=== PATIENT | female | born 1980 | race Caucasian/White ===

== ENCOUNTER → 2017-10-22 | Outpatient (CLI) | payer OTHER ==
--- NOTE | 2017-10-22 10:10 | US ---
EXAMINATION TYPE: US pelvic complete DATE OF EXAM: 10/22/2017 COMPARISON: NONE CLINICAL HISTORY: R10.2 Pelvic pain. Pt states generalized pelvic pain TECHNIQUE: Transabdominal (TA) Date of LMP: 09/21/2017 EXAM MEASUREMENTS: Uterus: 9.1 x 4.4 x 5.4 cm Endometrial Stripe: 0.7 cm Right Ovary: 2.7 x 1.8 x 2.4 cm Left Ovary: 3.1 x 1.5 x 3.0 cm 1. Uterus: Anteverted Heterogeneous with c-sec scar visible 2. Endometrium: wnl 3. Right Ovary: wnl 4. Left Ovary: wnl 5. Bilateral Adnexa: wnl 6. Posterior cul-de-sac: wnl No abnormality visualized to account for pt's symptoms IMPRESSION: No significant finding is seen to account for patient's symptoms.
== END | disposition home or self-care (01) ==
LOC: RADUSWWP 09:42
PROVIDERS: ATTEND Family Medicine
DX: R10.2 Pelvic and perineal pain (principal)
CPT/HCPCS: 76856

== ENCOUNTER → 2020-05-05 | Outpatient (CLI) | payer OTHER ==
--- NOTE | 2020-05-06 08:38 | MM ---
Reason for exam: clinical finding. Baseline mammogram. History: Took hormonal contraceptives beginning at age 18. Physical Findings: Nurse did not find any significant physical abnormalities on exam. MG 3D Diag Mammo W/Cad APRIL Bilateral CC and MLO view(s) were taken. The breast tissue is extremely dense which could obscure a lesion on mammography. Benign appearing bilateral calcifications. These results were verbally communicated with the patient and result sheet given to the patient on 05/05/20. ASSESSMENT: Benign, BI-RAD 2 RECOMMENDATION: Routine screening mammogram of both breasts in 1 year.
== END | disposition home or self-care (01) ==
LOC: RADMAMWWP 14:01
PROVIDERS: ATTEND Obstetrics & Gynecology
DX: N64.4 Mastodynia (principal)
CPT/HCPCS: 77066; G0279; 77062

== ENCOUNTER → 2021-09-27 | Outpatient (CLI) | payer OTHER ==
--- NOTE | 2021-09-28 08:03 | US ---
EXAMINATION TYPE: US pelvic complete DATE OF EXAM: 09/27/2021 COMPARISON: 10/22/2017 CLINICAL HISTORY: 41-year-old female N92.4 METRORRHAGIA. Patient states doctor felt uterus was enlarg ed. TECHNIQUE: Transabdominal sonographic images of the pelvis were acquired. Date of LMP: 09/19/2021, FINDINGS: EXAM MEASUREMENTS: Uterus: 9.9 x 5.2 x 3.8 cm Endometrial Stripe: 0.6 cm Right Ovary: 2.8 x 1.6 x 1.4 cm Left Ovary: 2.6 x 2.3 x 2.1 cm 1. Uterus: Anteverted. The myometrium is slightly heterogeneous. Somewhat prominent in size. 2. Endometrium: wnl 3. Right Ovary: Normal follicular change. 4. Left Ovary: A 1.4 cm dominant follicle. 5. Bilateral Adnexa: wnl 6. Posterior cul-de-sac: no free fluid IMPRESSION: 1. Uterus is slightly prominent in size measuring 10 cm long. It measured 9 cm long on 10/22/2017. 2. A 1.4 cm dominant follicle of the left ovary.
== END | disposition home or self-care (01) ==
LOC: RADUSWWP 16:13
PROVIDERS: ATTEND Obstetrics & Gynecology
DX: N92.4 Excessive bleeding in the premenopausal period (principal)
CPT/HCPCS: 76856

== ENCOUNTER 2021-10-27 10:50 | Day surgery (SDC) | payer OTHER ==
--- NOTE | 2021-10-25 16:01 | P.HPOB ---
History of Present Illness H&P Date: 10/25/21 Chief Complaint: Menorrhagia Arlene is a 41-year-old female with heavy vaginal bleeding. She relates that this a relatively new onset of very heavy bleeding with passage of up to softball size clots symptoms have started over the last 6 months and are causing significant distress and concerns just wear super tampon and pad at the same time and change at least every hour or she bleeds through. She is scheduled for a D&C with hysteroscopy and NovaSure. Risks/benefits/alternatives to this procedure were reviewed the patient in detail and all questions were answered for her prior to proceeding to the operative she is aware of risks of bleeding and infection possible damage to bladder or bowel thermal injuries as well as potential need for further surgery. She is also aware there is a small chance it could be concurrent cancer which would require different treatment but she would prefer to have 1 surgery rather than multiple surgeries. All this was explained and covered with the patient. Medications and Allergies Home Medications Medication Instructions Recorded Confirmed Type Norgestimate-Ethinyl Estradiol 1 tab PO DAILY 12/08/15 12/13/15 History [Sprintec 28 Day Tablet] Acetaminophen-Codeine 300-30mg 1 - 2 tab PO Q4H PRN #40 tablet 12/13/15 Rx [Tylenol #3] Ibuprofen [Motrin] 600 mg PO Q6HR PRN #40 tab 12/13/15 Rx Allergies Allergy/AdvReac Type Severity Reaction Status Date / Time No Known Allergies Allergy Verified 12/13/15 06:45 Exam Osteopathic Statement: *. No significant issues noted on an osteopathic structural exam other than those noted in the History and Physical/Consult. - OBG Physical Exam Breast: both: normal (no masses) Abdomen: bowel sounds normal, no diffuse tenderness, no bruit present, no guarding noted, no hepatomegaly, no splenomegaly, no mass Vulva: both: normal Vagina: normal moisture, no discharge Cervix: no lesion, no discharge Uterus: normal size, normal contour Adnexa: both: normal Anus/Rectum: normal perianal skin, no rectal mass, no hemorrhoids, heme negative
[2021-10-26 09:59] VITALS: BMI 26.9
[~2021-10-27 10:50] MED LIST: DEXAMETHASONE SOD PHOSPHATE 4 MG/ML 1 ML VIAL IV ONE; HYDROmorphone 1 MG/ML 1 ML SYRINGE IVP PRN; LACTATED RINGERS 1,000 ML IV SCH; MIDAZOLAM 2 MG/2 ML VIAL IV PRN; ONDANSETRON 4 MG/2 ML VIAL IVP ONE; Pre Op ABX Message 1 EACH MISC MISCELLANE ONE; SCOPOLAMINE 1.5MG/72HR PATCH TRANSDERM ONE
[2021-10-27] MEDS ORDERED: LIDOCAINE 1% INJ 10MG/ML (20 ML MDV) ONE (11:57)
[2021-10-27] MEDS ORDERED: KETOROLAC 15 MG/ML 1 ML VIAL ONE (11:57)
[2021-10-27] MEDS ORDERED: PROPOFOL 10 MG/ML 20 ML VIAL IV ONE (11:57)
[2021-10-27] MEDS ORDERED: MIDAZOLAM 2 MG/2 ML VIAL ONE (11:57)
[2021-10-27] MEDS ORDERED: fentaNYL (PF) 50 MCG/ML 2 ML AMP ONE (11:57)
--- NOTE | 2021-10-27 12:33 | P.OP ---
Date of Procedure: 10/27/21 Preoperative Diagnosis: Menorrhagia Postoperative Diagnosis: Same Procedure(s) Performed: D&C with hysteroscopy and NovaSure Anesthesia: SOBIA Surgeon: Bradley Sims Estimated Blood Loss (ml): 3 IV fluids (ml): 400 Pathology: other (Uterine curettings) Condition: stable Disposition: same day Operative Findings: Pathology pending.? Polyp Description of Procedure: Arelne was taken to the operating suite where general anesthetic was found be adequate. She was prepped and draped in normal sterile fashion and placed in the dorsal lithotomy position. Initially a weighted speculum was inserted in the vagina and the anterior lip of cervix identified and grasped with an Allis clamp. Cervix was then added to 8 cm and cervix was dilated. Once this was completed camera was inserted with question polyp noted. Sharp curettings of the endometrium were then obtained and placed on Telfa and sent to pathology for evaluation. Once this was completed NovaSure system was brought in with a length of 4.5 and a width of 4.1 it was tested. Once it passes patency test it was enabled and activated. The burn lasted 2 minutes. At conclusion of the burn system was removed and camera was reinserted with excellent burn noted. All incidents were then removed. Sponge, lap, needle counts were all correct 2. Patient was then taken to the recovery room in stable and satisfactory condition. 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 If any high temperatures, heavy bleeding, or severe pain call my office Discharge Disposition: HOME SELF-CARE
[2021-10-27 13:05] VITALS: TEMP 97
[2021-10-27] MEDS ORDERED: HYDROmorphone 1 MG/ML 1 ML SYRINGE ONE (13:19)
[2021-10-27] MEDS ORDERED: ACETAMINOPHEN TAB 500 MG TAB ONE (13:20)
[2021-10-27] MEDS ORDERED: ACETAMINOPHEN TAB 500 MG TAB PO ONE (13:22)
[2021-10-27 13:46] VITALS: BP 103/59; PULSE 59; RESP 17
== END 2021-10-27 14:10 | disposition home or self-care (01) ==
LOC: OR 10:50
PROVIDERS: ATTEND Obstetrics & Gynecology
DX: N92.0 Excessive and frequent menstruation with regular cycle (principal); Z79.3 Long term (current) use of hormonal contraceptives; F17.200 Nicotine dependence, unspecified, uncomplicated; K21.9 Gastro-esophageal reflux disease without esophagitis
CPT/HCPCS: 81025; 88305; 58563; J2250; J1100; J2405; J2001; J3010; J1170; J1885; J2704

== ENCOUNTER → 2022-09-03 | Outpatient (CLI) | payer OTHER ==
--- NOTE | 2022-09-03 08:33 | US ---
EXAMINATION TYPE: US abdomen complete DATE OF EXAM: 09/03/2022 COMPARISON: NONE CLINICAL HISTORY: R14.0 BLOATING, R19.8 CONSTIPATION, R10.13 PAIN. TECHNIQUE: Multiple sonographic images of the abdomen are obtained. FINDINGS: EXAM MEASUREMENTS: Liver Length: 11.7 cm Gallbladder Wall: 0.1 cm CBD: 0.1 cm Spleen: 11.0 cm Right Kidney: 11.2 x 3.4 x 4.4 cm Left Kidney: 10.8 x 4.4 x 4.4 cm ENTRY LEVEL STAFF ACCOUNTANT NOTES: Pancreas: wnl Liver: Septated cyst left lobe measuring 3.0 x 2.1 x 2.8 cm, subtle hyperechoic well circumscribed m ass measuring 1.6 x 1.4 x 1.5cm Gallbladder: wnl Evidence for sonographic Tolentino's sign: no CBD: wnl Spleen: wnl Right Kidney: No hydronephrosis or masses seen Left Kidney: No hydronephrosis or masses seen Upper IVC: wnl Abd Aorta: wnl The intrahepatic portion of the IVC and proximal abdominal aorta are within normal limits. There is no evidence of cholelithiasis. Common bile duct is unremarkable. The visualized portions of the puente cre[place] are homogenous. The spleen is unremarkable. Kidneys are symmetric and free of hydronephrosis. No renal lesions are seen. IMPRESSION: 1. No evidence for acute abdominal process. 2. Minimally complex hepatic cyst with thin septation. 3. Indeterminate hyperechoic lesion in the liver measuring up to 1.6 cm. If clinically warranted to be further characterized with MRI/CT liver mass protocol.
--- NOTE | 2022-09-04 08:44 | MM ---
Reason for Exam: Screening (asymptomatic). Last mammogram was performed 2 year(s) and 4 month(s) ago. Patient History: Menarche at age 15. First Full-Term at age 27. Premenopausal. Hormonal Contraceptives, from age 18 until age 35. Risk Values: [facility] 5 year model risk: 0.6%. NCI Lifetime model risk: 11.1%. Prior Study Comparison: 05/05/2020 Bilateral Diagnostic Mammogram, [facility]. Tissue Density: The breast tissue is heterogeneously dense. This may lower the sensitivity of mammography. Findings: Analyzed By CAD. Asymmetric density left breast 6 cm from the nipple central outer quadrant. Additional views are recommended. Few scattered benign calcifications are unchanged. Overall Assessment: Incomplete: need additional imaging evaluation, BI-RAD 0 Management: Diagnostic Mammogram of the left breast. A clinical breast exam by your physician is recommended on an annual basis and results should be correlated with mammographic findings. Electronically signed and approved by: Long Steele M.D. Radiologis
== END | disposition home or self-care (01) ==
LOC: RADUSWWP 07:18
PROVIDERS: ATTEND Family Medicine
DX: Z12.31 Encounter for screening mammogram for malignant neoplasm of breast (principal); K76.89 Other specified diseases of liver; R14.0 Abdominal distension (gaseous); R19.8 Other specified symptoms and signs involving the digestive system and abdomen; R10.13 Epigastric pain
CPT/HCPCS: 76700; 77063; 77067

== ENCOUNTER → 2022-09-06 | Outpatient (CLI) | payer OTHER ==
--- NOTE | 2022-09-06 14:31 | MM ---
Reason for Exam: Additional evaluation requested from abnormal screening. Last screening mammogram was performed less than 1 month ago. Patient History: Menarche at age 15. First Full-Term at age 27. Premenopausal. Hormonal Contraceptives, from age 18 until age 35. Risk Values: [facility] 5 year model risk: 0.6%. NCI Lifetime model risk: 11.1%. Prior Study Comparison: 05/05/2020 Bilateral Diagnostic Mammogram, [facility]. 09/03/2022 Bilateral MG 3D screening mammo w/cad, [facility]. Tissue Density: Left: The breast tissue is heterogeneously dense. This may lower the sensitivity of mammography. Findings: Analyzed By CAD. Under compression in the mediolateral oblique and mediolateral views no persistent suspicious distortion is evident. Vague distortion may be present on the compression cranial caudal view. This appears to partially disperse. Short-term follow-up is recommended. Overall Assessment: Probably benign, BI-RAD 3 Management: Diagnostic Mammogram of the left breast in 6 months. A clinical breast exam by your physician is recommended on an annual basis and results should be correlated with mammographic findings. This exam should not preclude additional follow-up of suspicious palpable abnormalities. Results were given to the patient verbally at the time of exam. Electronically signed and approved by: Dieudonne Thomason D.O. Radiologis
== END | disposition home or self-care (01) ==
LOC: RADMAMWWP 13:39
PROVIDERS: ATTEND Family Medicine
DX: R92.8 Other abnormal and inconclusive findings on diagnostic imaging of breast (principal)
CPT/HCPCS: 77065; G0279; 77061

== ENCOUNTER 2023-01-01 05:59 | Day surgery (SDC) | payer OTHER ==
[2022-12-31 08:24] VITALS: BMI 26.2
[2023-01-01] MEDS ORDERED: LACTATED RINGERS 1,000 ML IV SCH (06:28)
[2023-01-01] MEDS ORDERED: LIDOCAINE 1% (10MG/ML) FOR IV START INTRADERMA PRN (06:28)
[2023-01-01 06:58] VITALS: TEMP 97.1
[2023-01-01] MEDS ORDERED: LIDOCAINE 2% INJ 20 MG/ML (2 ML VIAL) ONE (07:22)
[2023-01-01] MEDS ORDERED: PROPOFOL 10 MG/ML 20 ML VIAL IV ONE (07:22)
--- NOTE | 2023-01-01 07:44 | P.PCN ---
Date of Procedure: 01/01/23 Procedure(s) Performed: Brief history: Patient is a pleasant 42-year-old white female scheduled for an elective upper endoscopy as well as colonoscopy as a part of evaluation of epigastric pain for the last several years duration. Her symptoms have been progressively getting worse the last admission associated with abdominal bloating and alternating diarrhea and constipation. Procedure performed: Esophagogastroduodenoscopy biopsy Colonoscopy Preoperative diagnosis: Epigastric pain Change in bowel habits Anesthesia: MAC Procedure: After informed consent was obtained from the patient was brought into the endoscopy unit and IV sedation was administered by anesthesia under continuous monitoring. Initially upper endoscopy was done. The Olympus GF 160 video endoscope was inserted inserted into the mouth and esophagus intubated without any difficulty and was gradually advanced into the stomach and duodenum and carefully examined. The bulb and second part of the duodenum appeared normal. Biopsies were done from the duodenum to rule out celiac disease. The scope was then withdrawn into the stomach adequately insufflated with air and upon careful examination the antrum had scattered areas of erythema and biopsies were done from this area. Mucosady, cardia and fundus appeared normal. The scope was then withdrawn into the esophagus. The GE junction was located at 40 cm to the incisors. It appeared regular with no erythema erosions or ulcerations. Biopsies were done from the distal esophagus. Rest of the esophagus appeared normal. Patient tolerated the procedure well. At this time the patient continued to remain sedation. Initial digital rectal examination was normal. Olympus CF 160 video colonoscope was then inserted into the rectum and gradually advanced to the cecum without any difficulty. Careful examination was performed as the scope was gradually being withdrawn. The prep was excellent. Terminal ileum was intubated and 20 cm visualized and appeared normal. The cecum, ascending colon, transverse colon, descending colon, sigmoid colon and rectum appeared normal. Retroflexion was performed in the rectum and no lesions were noted. Patient tolerated the procedure well. Impression: 1. Upper endoscopy revealed mild antral gastritis 2. Colonoscopy was within normal limits with no evidence of colitis or colorectal neoplasia Recommendations: Findings of this examination were discussed with the patient as well as her family. She was advised to follow with the biopsy results. Continue with current medications and follow antireflux measures. She'll be seen in office in 3-4 weeks.
[2023-01-01 08:00] VITALS: RESP 16
[2023-01-01 08:13] VITALS: BP 116/76; PULSE 74
== END 2023-01-01 08:30 | disposition home or self-care (01) ==
LOC: ORWHC2ENDO 05:59
PROVIDERS: ATTEND Internal Medicine Gastroenterology
DX: K29.90 Gastroduodenitis, unspecified, without bleeding (principal); K31.89 Other diseases of stomach and duodenum; K21.00 Gastro-esophageal reflux disease with esophagitis, without bleeding; K59.00 Constipation, unspecified; Z87.891 Personal history of nicotine dependence; Z79.899 Other long term (current) drug therapy
CPT/HCPCS: 81025; 88305; 45378; 43239; J2704; J2001

== ENCOUNTER → 2023-01-24 | Outpatient (CLI) | payer OTHER ==
--- NOTE | 2023-01-24 08:59 | US ---
EXAMINATION TYPE: US pelvic complete DATE OF EXAM: 01/24/2023 COMPARISON: NONE CLINICAL INDICATION: Female, 42 years old with history of R10.30 LOW ABD PAIN; Hx ablation October 25. TECHNIQUE: Transabdominal (TA). Transabdominal sonographic images of the pelvis were acquired. Pat ient declines transvaginal ultrasound. Date of LMP: Unknown, EXAM MEASUREMENTS: Uterus: 9.9 x 5.2 x 3.8 cm Endometrial Stripe: 0.3 cm Right Ovary: 2.8 x 1.6 x 1.4 cm Left Ovary: 2.6 x 2.3 x 2.1 cm 1. Uterus: Anteverted Heterogenous 2. Endometrium: limited visualization due to ablation 3. Right Ovary: dominant follicle seen 4. Left Ovary: follicles seen 5. Bilateral Adnexa: wnl 6. Posterior cul-de-sac: trace amount of free fluid seen IMPRESSION: Poor visualization of the endometrium which could be secondary to posttreatment changes. No acute processes definitively visualized.
== END | disposition home or self-care (01) ==
LOC: RADUSWWP 07:39
PROVIDERS: ATTEND Family Medicine
DX: R10.30 Lower abdominal pain, unspecified (principal)
CPT/HCPCS: 76856

== ENCOUNTER → 2023-02-07 | Outpatient (CLI) | payer OTHER ==
[2023-02-07 16:59] LABS: Gliadin AB IgA, Deaminated NEGATIVE (NEGATIVE); Gliadin AB IgA, Unit 0.2 U/mL; Gliadin AB IgG, Deaminated NEGATIVE (NEGATIVE); Gliadin AB IgG, Unit <0.4 U/mL
== END | disposition home or self-care (01) ==
LOC: LABWHC1 09:41
PROVIDERS: ATTEND Nurse Practitioner Family
DX: R10.13 Epigastric pain (principal)
CPT/HCPCS: 36415; 83516

== ENCOUNTER 2023-02-26 12:44 | Emergency (ER) | payer BC, OTHER ==
[2023-02-26] MEDS ORDERED: ACETAMINOPHEN TAB 500 MG TAB PO STA (13:47)
[2023-02-26] MEDS ORDERED: IBUPROFEN 600 MG TAB PO STA (13:47)
--- NOTE | 2023-02-26 13:49 | ED ---
General Adult HPI - General Chief complaint: Fever Stated complaint: abd pain,body aches Time Seen by Provider: 02/26/23 13:25 Source: patient, RN notes reviewed, old records reviewed Mode of arrival: ambulatory Limitations: no limitations - History of Present Illness Initial comments: This is a 42-year-old female presents emergency department stating that she has not been feeling well for the last 2 weeks. She was initially diagnosed with a bilateral ear infection with sinusitis given antibiotics. Patient states since then she continues to have some body aches and headache as of 3 days ago she started spiking a fever she's had it for 3 days now. [facility] or primary medical care doctor who wanted to come in to the emergency department to be further evaluated. Patient denies any nausea vomiting. Patient denies chest pain patient shortness of breath per patient denies cough. Patient states his whole thing started with a sore throat 2 weeks ago and now she is extremely tired and fatigued and she's sleeping 14 or 15 hours a day. Patient denies any dysuria hematuria urinary frequency. Patient states her lower back is achy as well. Patient states she does have a headache but it is mild in nature. - Related Data Home Medications Medication Instructions Recorded Confirmed Cholecalciferol (Vitamin D3) 125 mcg PO Q7D 12/31/22 01/01/23 [Vitamin D3] Allergies Allergy/AdvReac Type Severity Reaction Status Date / Time No Known Allergies Allergy Verified 01/01/23 06:43 Review of Systems ROS Statement: Those systems with pertinent positive or pertinent negative responses have been documented in the HPI. ROS Other: All systems not noted in ROS Statement are negative. Past Medical History Past Medical History: No Reported History Additional Past Medical History / Comment(s): Stomach pain with constipation and diarrhea. History of Any Multi-Drug Resistant Organisms: None Reported Past Surgical History: Appendectomy, Section, Tubal Ligation Additional Past Surgical History / Comment(s): LEEP procedure, C/S x2, uterine ablation. Past Anesthesia/Blood Transfusion Reactions: No Reported Reaction Past Psychological History: No Psychological Hx Reported Smoking Status: Former smoker Past Alcohol Use History: None Reported Past Drug Use History: None Reported - Past Family History Mother Family Medical History: No Reported History General Exam - General Exam Comments Initial Comments: GENERAL: Patient is well-developed and well-nourished. Patient is nontoxic and well- hydrated and is in mild distress. Patient is 101.3 fever orally ENT: Neck is soft and supple. No significant lymphadenopathy is noted. Oropharynx is clear. Moist mucous membranes. Neck has full range of motion without eliciting any pain. EYES: The sclera were anicteric and conjunctiva were pink and moist. Extraocular movements were intact and pupils were equal round and reactive to light. Eyelids were unremarkable. PULMONARY: Unlabored respirations. Good breath sounds bilaterally. No audible rales rhonchi or wheezing was noted. CARDIOVASCULAR: There is a regular rate and rhythm without any murmurs gallops or rubs. ABDOMEN: Soft and nontender with normal bowel sounds. SKIN: Skin is clear with no lesions or rashes and otherwise unremarkable. NEUROLOGIC: Patient is alert and oriented x3. Cranial nerves II through XII are grossly intact. Motor and sensory are also intact. Normal speech, volume and content. Symmetrical smile. MUSCULOSKELETAL: Normal extremities with adequate strength and full range of motion. No lower extremity swelling or edema. No calf tenderness. LYMPHATICS: No significant lymphadenopathy is noted PSYCHIATRIC: Normal psychiatric evaluation. Limitations: no limitations Course Vital Signs 02/26/23 13:12 Temperature 100.1 F H Pulse Rate 118 H Respiratory 20 Rate Blood Pressure 127/4 O2 Sat by Pulse 100 Oximetry Medical Decision Making - Medical Decision Making Was pt. sent in by a medical professional or institution (AJSWINDER Diamond, PROPERTY ASSESSMENT MONITOR, urgent care, hospital, or fdc...) When possible be specific @ -Patient's primary medical care doctor sent her into the emergency department Did you speak to anyone other than the patient for history (EMS, parent, family, police, friend...)? What history was obtained from this source @ -No Did you review nursing and triage notes (agree or disagree)? Why? @ -I reviewed and agree with nursing and triage notes Were old charts reviewed (outside hosp., previous admission, EMS record, old EKG, old radiological studies, urgent care reports/EKG's, fdc records)? Report findings @ -No old charts were reviewed Differential Diagnosis (chest pain, altered mental status, abdominal pain women, abdominal pain men, vaginal bleeding, weakness, fever, dyspnea, syncope, headache, dizziness, GI bleed, back pain, seizure, CVA, palpatations, mental health, musculoskeletal)? @ -Differential Fever: Pneumonia, viral URI, endocarditis, myocarditis, pericarditis, otitis, sinusitis, peritonsillar Abscess, retropharyngeal Abscess, epiglottitis, peritonitis, appendicitis, Joann cystitis, diverticulitis, hepatitis, colitis, UTI, PID, TOA, pyelonephritis, prostatitis, epididymitis, meningitis, encephalitis, pulmonary embolism, CVA, thyroid storm, pancreatitis, adrenal crisis, cavernous sinus thrombosis, this is not meant to be an all-inclusive list. EKG interpreted by me (3pts min.). @ -As above X-rays interpreted by me (1pt min.). @ -Chest x-ray showed no acute abnormality CT interpreted by me (1pt min.). @ -None done U/S interpreted by me (1pt. min.). @ -None done What testing was considered but not performed or refused? (CT, X-rays, U/S, labs)? Why? @ -None What meds were considered but not given or refused? Why? @ -None Did you discuss the management of the patient with other professionals (professionals i.e. , PA, PROPERTY ASSESSMENT MONITOR, lab, RT, psych nurse, social media assistant, flooring machine operator, teacher, prison officer, case loader operator)? Give summary @ -No Was smoking cessation discussed for >3mins.? @ -No Was critical care preformed (if so, how long)? @ -No Were there social determinants of health that impacted care today? How? (Homelessness, low income, unemployed, alcoholism, drug addiction, trans portation, low edu. Level, literacy, decrease access to med. care, prison, rehab)? @ -No Was there de-escalation of care discussed even if they declined (Discuss DNR or withdrawal of care, Hospice)? DNR status @ -No What co-morbidities impacted this encounter? (DM, HTN, Smoking, COPD, CAD, Cancer, CVA, ARF, Chemo, Hep., AIDS, mental health diagnosis, sleep apnea, morbid obesity)? @ -None Was patient admitted / discharged? Hospital course, mention meds given and route, prescriptions, significant lab abnormalities, going to OR and other pertinent info. @ -To give Motrin and Tylenol to bring on the fever. Patient was also given a liter of fluid because she stated she felt dehydrated. Patient had lab work done COVID test influenza test strep test and heterophile test all of which were negative. Chest x-ray was also negative. Urine was negative for infection. Patient has ending throat culture and blood culture Undiagnosed new problem with uncertain prognosis? @ -No Drug Therapy requiring intensive monitoring for toxicity (Heparin, Nitro, Insulin, Cardizem)? @ -No Were any procedures done? @ -No Diagnosis/symptom? @ -Viral syndrome Acute, or Chronic, or Acute on Chronic? @ -Acute Uncomplicated (without systemic symptoms) or Complicated (systemic symptoms)? @ -Uncomplicated Side effects of treatment? @ -No Exacerbation, Progression, or Severe Exacerbation? @ -No Poses a threat to life or bodily function? How? (Chest pain, [place], [place], pneumonia, PE, COPD, DKA, ARF, appy, cholecystitis, CVA, Diverticulitis, Homicidal, Suicidal, threat to staff... and all critical care pts) @ -No - Lab Data Result diagrams: 02/26/23 15:00 02/26/23 15:00 Lab Results 02/26/23 02/26/23 02/26/23 Range/Units 15:00 15:00 15:00 WBC 7.7 (3.8-10.6) k/uL RBC 4.47 (3.80-5.40) m/uL Hgb 13.7 (11.4-16.0) gm/dL Hct 40.2 (34.0-46.0) % MCV 89.9 (80.0-100.0) fL MCH 30.7 (25.0-35.0) pg MCHC 34.1 (31.0-37.0) g/dL RDW 12.2 (11.5-15.5) % Plt Count 297 (150-450) k/uL MPV 7.4 Neutrophils % 81 % Lymphocytes % 13 % Monocytes % 4 % Eosinophils % 1 % Basophils % 1 % Neutrophils # 6.3 (1.3-7.7) k/uL Lymphocytes # 1.0 (1.0-4.8) k/uL Monocytes # 0.3 (0-1.0) k/uL Eosinophils # 0.1 (0-0.7) k/uL Basophils # 0.0 (0-0.2) k/uL Sodium 134 L (137-145) mmol/L Potassium 4.1 (3.5-5.1) mmol/L Chloride 99 (98-107) mmol/L Carbon Dioxide 24 (22-30) mmol/L Anion Gap 11 mmol/L BUN 11 (7-17) mg/dL Creatinine 0.53 (0.52-1.04) mg/dL Est GFR (CKD-EPI)AfAm >90 (>60 ml/min/1.73 sqM) Est GFR (CKD-EPI)NonAf >90 (>60 ml/min/1.73 sqM) Glucose 88 (74-99) mg/dL Calcium 9.1 (8.4-10.2) mg/dL Total Bilirubin 0.8 (0.2-1.3) mg/dL AST 17 (14-36) U/L ALT 12 (4-34) U/L Alkaline Phosphatase 56 (38-126) U/L Total Protein 7.4 (6.3-8.2) g/dL Albumin 4.6 (3.5-5.0) g/dL Urine Color Urine Appearance (Clear) Urine pH (5.0-8.0) Ur Specific [place] (1.001-1.035) Urine Protein (Negative) Urine Glucose (UA) (Negative) Urine Ketones (Negative) Urine Blood (Negative) Urine Nitrite (Negative) Urine Bilirubin (Negative) Urine Urobilinogen (<2.0) mg/dL Ur Leukocyte Esterase (Negative) Urine RBC (0-5) /hpf Urine WBC (0-5) /hpf Ur Squamous Epith Cells (0-4) /hpf Urine Mucus (None) /hpf Heterophile Antibody Negative (Negative) Influenza Type A (PCR) (Not Detectd) Influenza Type B (PCR) (Not Detectd) RSV (PCR) (Not Detectd) SARS-CoV-2 (PCR) (Not Detectd) Group A Strep (PCR) (Not Detectd) 02/26/23 02/26/23 02/26/23 Range/Units 15:10 15:10 16:08 WBC (3.8-10.6) k/uL RBC (3.80-5.40) m/uL Hgb (11.4-16.0) gm/dL Hct (34.0-46.0) % MCV (80.0-100.0) fL MCH (25.0-35.0) pg MCHC (31.0-37.0) g/dL RDW (11.5-15.5) % Plt Count (150-450) k/uL MPV Neutrophils % % Lymphocytes % % Monocytes % % Eosinophils % % Basophils % % Neutrophils # (1.3-7.7) k/uL Lymphocytes # (1.0-4.8) k/uL Monocytes # (0-1.0) k/uL Eosinophils # (0-0.7) k/uL Basophils # (0-0.2) k/uL Sodium (137-145) mmol/L Potassium (3.5-5.1) mmol/L Chloride (98-107) mmol/L Carbon Dioxide (22-30) mmol/L Anion Gap mmol/L BUN (7-17) mg/dL Creatinine (0.52-1.04) mg/dL Est GFR (CKD-EPI)AfAm (>60 ml/min/1.73 sqM) Est GFR (CKD-EPI)NonAf (>60 ml/min/1.73 sqM) Glucose (74-99) mg/dL Calcium (8.4-10.2) mg/dL Total Bilirubin (0.2-1.3) mg/dL AST (14-36) U/L ALT (4-34) U/L Alkaline Phosphatase (38-126) U/L Total Protein (6.3-8.2) g/dL Albumin (3.5-5.0) g/dL Urine Color Yellow Urine Appearance Cloudy H (Clear) Urine pH 6.5 (5.0-8.0) Ur Specific [place] 1.025 (1.001-1.035) Urine Protein Trace H (Negative) Urine Glucose (UA) Negative (Negative) Urine Ketones 2+ H (Negative) Urine Blood Negative (Negative) Urine Nitrite Negative (Negative) Urine Bilirubin Negative (Negative) Urine Urobilinogen 3.0 (<2.0) mg/dL Ur Leukocyte Esterase Small H (Negative) Urine RBC 2 (0-5) /hpf Urine WBC 7 H (0-5) /hpf Ur Squamous Epith Cells 18 H (0-4) /hpf Urine Mucus Occasional H (None) /hpf Heterophile Antibody (Negative) Influenza Type A (PCR) Not Detected (Not Detectd) Influenza Type B (PCR) Not Detected (Not Detectd) RSV (PCR) Not Detected (Not Detectd) SARS-CoV-2 (PCR) Not Detected (Not Detectd) Group A Strep (PCR) NOT DETECTED (Not Detectd) Disposition Clinical Impression: Viral syndrome Disposition: HOME SELF-CARE Condition: Good Instructions (If sedation given, give patient instructions): Fever in Adults (ED), Viral Syndrome (ED) Is patient prescribed a controlled substance at d/c from ED?: No Referrals: Delicia Estevez MD [Primary Care Provider] - 1-2 days Time of Disposition: 17:13
--- NOTE | 2023-02-26 14:40 | XR ---
EXAMINATION TYPE: XR chest 2V DATE OF EXAM: 02/26/2023 COMPARISON: None HISTORY: 42 year-old female shortness of breath, difficulty breathing TECHNIQUE: PA and lateral views FINDINGS: The cardiomediastinal silhouette, aorta, and pulmonary vasculature are within normal limits. Lungs an d pleural spaces are clear. IMPRESSION: No acute cardiopulmonary process.
[2023-02-26 15:17] LABS: Basophils % (A) 1 %; Eosinophils # (A) 0.1 k/uL (0-0.7); Eosinophils % (A) 1 %; HCT 40.2 % (34.0-46.0); HGB 13.7 gm/dL (11.4-16.0); Lymphocytes % (A) 13 %; MCH 30.7 pg (25.0-35.0); MCHC 34.1 g/dL (31.0-37.0); MCV 89.9 fL (80.0-100.0); Mean Platelet Volume 7.4; Monocytes # (A) 0.3 k/uL (0-1.0); Monocytes % (A) 4 %; Neutrophils # (A) 6.3 k/uL (1.3-7.7); Neutrophils % (A) 81 %; Platelet Count 297 k/uL (150-450); RBC 4.47 m/uL (3.80-5.40); RDW 12.2 % (11.5-15.5); WBC 7.7 k/uL (3.8-10.6)
[2023-02-26 15:28] LABS: ALT 12 U/L (4-34); AST 17 U/L (14-36); African American GFR (CKD) >90 (>60 ml/min/1.73 sqM); Albumin 4.6 g/dL (3.5-5.0); Alkaline Phosphatase 56 U/L (38-126); Anion Gap 11 mmol/L; Blood Urea Nitrogen 11 mg/dL (7-17); Calcium 9.1 mg/dL (8.4-10.2); Carbon Dioxide 24 mmol/L (22-30); Chloride 99 mmol/L (98-107); Glucose 88 mg/dL (74-99); Non-African American GFR(CKD) >90 (>60 ml/min/1.73 sqM); Potassium 4.1 mmol/L (3.5-5.1); Sodium 134 mmol/L (137-145); Total Bilirubin 0.8 mg/dL (0.2-1.3); Total Protein 7.4 g/dL (6.3-8.2)
[2023-02-26 15:33] LABS: Appearance,Urine Cloudy (Clear); Bilirubin,Urine Negative (Negative); Blood,Urine Negative (Negative); Color,Urine Yellow; Glucose,Urine (UA) Negative (Negative); Ketones,Urine 2+ (Negative); Leukocyte Esterase,Urine Small (Negative); Mucus,Urine Occasional /hpf; Nitrite,Urine Negative (Negative); PH, Urine 6.5 (5.0-8.0); Protein,Urine Trace (Negative); RBC,Urine 2 /hpf (0-5); Specific Gravity,Urine 1.025 (1.001-1.035); Squamous Epithelial Cell,Urine 18 /hpf (0-4); WBC,Urine 7 /hpf (0-5)
[2023-02-26 18:19] VITALS: BP 116/76; PULSE 71; RESP 15; TEMP 98.3
== END 2023-02-26 18:18 | disposition home or self-care (01) ==
LOC: EC 12:44
DX: B34.9 Viral infection, unspecified (principal); Z20.822 Contact with and (suspected) exposure to COVID-19; Z87.891 Personal history of nicotine dependence; Z90.49 Acquired absence of other specified parts of digestive tract
CPT/HCPCS: 36415; 71046; 80053; 81001; 85025; 86308; 87040; 87636; 87651; 99283

== ENCOUNTER → 2023-03-28 | Outpatient (CLI) | payer BC ==
--- NOTE | 2023-03-28 10:04 | MM ---
Reason for Exam: Follow-up at short interval from prior study. Last screening mammogram was performed 7 month(s) ago. Patient History: Menarche at age 15. First Full-Term at age 27. Premenopausal. Hormonal Contraceptives, from age 18 until age 35. Risk Values: Sinai 5 year model risk: 0.6%. NCI Lifetime model risk: 11.1%. Prior Study Comparison: 05/05/2020 Bilateral Diagnostic Mammogram, [facility]. 09/03/2022 Bilateral MG 3D screening mammo w/cad, [facility]. 09/06/2022 Left MG 3D work up w/cad , [facility]. Tissue Density: Left: The breast tissue is heterogeneously dense. This may lower the sensitivity of mammography. Findings: Analyzed By CAD. No new suspicious mass or worrisome calcifications within the left breast. Previously seen distortion is not well visualized on today's examination. Overall Assessment: Benign, BI-RAD 2 Management: Screening Mammogram of both breasts in 6 months. A clinical breast exam by your physician is recommended on an annual basis and results should be correlated with mammographic findings. This exam should not preclude additional follow-up of suspicious palpable abnormalities. Results were given to the patient verbally at the time of exam. Note on Sinai scores and lifetime risk: 1. A Sinai score greater than 3% is considered moderate risk. If this is the case, consider specialist referral to assess eligibility for a risk reducing agent. If overall lifetime risk for the development of breast cancer is 20% or higher, the patient may qualify for future screening with alternating mammogram and breast MRI. Electronically signed and approved by: Garret Bryant D.O.
== END | disposition home or self-care (01) ==
LOC: RADMAMWWP 09:39
PROVIDERS: ATTEND Family Medicine
DX: R92.8 Other abnormal and inconclusive findings on diagnostic imaging of breast (principal)
CPT/HCPCS: 77061; 77065

== ENCOUNTER → 2023-10-29 | Outpatient (CLI) | payer OTHER ==
--- NOTE | 2023-10-30 13:53 | MM ---
Reason for Exam: Screening (asymptomatic). Last mammogram was performed 1 year(s) and 2 month(s) ago. Patient History: Menarche at age 15. First Full-Term at age 27. Premenopausal. Hormonal Contraceptives, from age 18 until age 35. Risk Values: Sinai 5 year model risk: 0.7%. NCI Lifetime model risk: 11.0%. Prior Study Comparison: 05/05/2020 Bilateral Diagnostic Mammogram, [facility]. 09/03/2022 Bilateral MG 3D screening mammo w/cad, [facility]. 09/06/2022 Left MG 3D work up w/cad LT, [facility]. 03/28/2023 Left MG 3D diag mammo w/cad LT, [facility]. Tissue Density: The breast tissue is heterogeneously dense. This may lower the sensitivity of mammography. Findings: Analyzed By CAD. There is no suspicious group of microcalcifications or new suspicious mass. Overall Assessment: Negative, BI-RAD 1 Management: Screening Mammogram of both breasts in [address] [facility] will attempt to contact patient to return for supplemental views and ultrasound if indicated. Patient should continue monthly self-breast exams. A clinical breast exam by your physician is recommended on an annual basis. This exam should not preclude additional follow-up of suspicious palpable abnormalities. Note on Sinai scores and lifetime risk: 1. A Sinai score greater than 3% is considered moderate risk. If this is the case, consider specialist referral to assess eligibility for a risk reducing agent. 2. If overall lifetime risk for the development of breast cancer is 20% or higher, the patient may qualify for future screening with alternating mammogram and breast MRI. Electronically signed and approved by: Wil Kim DO
== END | disposition home or self-care (01) ==
LOC: RADMAMWWP 09:55
PROVIDERS: ATTEND Family Medicine
DX: Z12.31 Encounter for screening mammogram for malignant neoplasm of breast (principal)
CPT/HCPCS: 77063; 77067

== ENCOUNTER → 2025-01-07 | Outpatient (CLI) | payer BC ==
--- NOTE | 2025-01-07 08:20 | US ---
EXAMINATION TYPE: US abdomen limited DATE OF EXAM: 01/07/2025 COMPARISON: MR abdomen 10/05/2022, abdominal ultrasound 09/03/22 CLINICAL INDICATION: Female, 44 years old with history of K76.9 LIVER DISEASE, UNSPEC; follow up on h emangioma TECHNIQUE: Grayscale and color Doppler imaging of the right upper quadrant was performed. FINDINGS: EXAM MEASUREMENTS: Liver Length: 13.3 cm Gallbladder Wall: 0.17 cm CBD: 0.23 cm Right Kidney: 10.2 x 4.2 x 4.7 cm DESIGNATED BROKER NOTES: Pancreas: parts seen appear wnl Liver: hypoechoic area seen in left lobe measuring 3.8 x 3.4 x 2.4cm. Hyperechoic area seen in right lobe measuring 1.5 x 1.7 x 1.8cm Gallbladder: wnl Evidence for sonographic Tolentino's sign: No CBD: wnl Right Kidney: wnl The visualized portion of the pancreas is within normal limits. Stable hyperechoic right hepatic lobe 1.8 cm lesion previously characterized as a hemangioma on prior MR. Stable minimally complex hepatic cyst with thin septation within the left hepatic lobe from prior ultrasound. No internal color flow. The gallbladder demonstrates no stones, wall thickening or surrounding fluid. Negative sonographic M urphy's sign. Common bile duct is within normal limits. Right kidney demonstrates no hydronephrosis, shadowing calculus or solid mass. IMPRESSION: 1. No ultrasound evidence for acute process. 2. Stable minimally complex hepatic cyst with thin septation. 3. Stable hyperechoic right hepatic lobe lesion previously characterized as a hemangioma. [facility], , 01/07/2025 8:18 AM
--- NOTE | 2025-01-07 08:25 | MM ---
Reason for Exam: Screening (asymptomatic). Last mammogram was performed 1 year(s) and 2 month(s) ago. Patient History: Menarche at age 15. First Full-Term at age 27. Premenopausal. Hormonal Contraceptives, from age 18 until age 35. Risk Values: Sinai 5 year model risk: 0.7%. NCI Lifetime model risk: 10.9%. Prior Study Comparison: 09/06/2022 Left MG 3D work up w/cad LT, [facility]. 03/28/2023 Left MG 3D diag mammo w/cad LT, [facility]. 10/29/2023 Bilateral MG 3D screening mammo w/cad, [facility]. Tissue Density: The breasts are extremely dense, which lowers the sensitivity of mammography. Findings: Analyzed By CAD. There is no suspicious group of microcalcifications in either breast. Nodular density upper outer left breast 9.8 cm from the nipple requires additional evaluation. Additional nodular density upper and slightly outer left breast 7.5 cm from the nipple. Additional views are recommended as well. Overall Assessment: Incomplete: need additional imaging evaluation, BI-RAD 0 Management: Diagnostic Mammogram of the left breast. . Patient should continue monthly self-breast exams. A clinical breast exam by your physician is recommended on an annual basis. This exam should not preclude additional follow-up of suspicious palpable abnormalities. Note on Sinai scores and lifetime risk: 1. A Sinai score greater than 3% is considered moderate risk. If this is the case, consider specialist referral to assess eligibility for a risk reducing agent. 2. If overall lifetime risk for the development of breast cancer is 20% or higher, the patient may qualify for future screening with alternating mammogram and breast MRI. [facility], , 01/07/2025 8:23 AM. Electronically signed and approved by: Long Steele M.D. Radiologis
== END | disposition home or self-care (01) ==
LOC: RADUSWWP 07:43
PROVIDERS: ATTEND Family Medicine
DX: Z12.31 Encounter for screening mammogram for malignant neoplasm of breast (principal); R92.343 Mammographic extreme density, bilateral breasts; K76.89 Other specified diseases of liver; Z92.0 Personal history of contraception
CPT/HCPCS: 76705; 77063; 77067

== ENCOUNTER → 2025-01-11 | Outpatient (CLI) | payer BC ==
--- NOTE | 2025-01-11 08:59 | MM ---
Reason for Exam: Additional evaluation requested from abnormal screening. Last screening mammogram was performed less than 1 month ago. Patient History: Menarche at age 15. First Full-Term at age 27. Premenopausal. Hormonal Contraceptives, from age 18 until age 35. Risk Values: Sinai 5 year model risk: 0.7%. NCI Lifetime model risk: 10.9%. Prior Study Comparison: 03/28/2023 Left MG 3D diag mammo w/cad , [facility]. 10/29/2023 Bilateral MG 3D screening mammo w/cad, [facility]. 01/07/2025 Bilateral MG 3D screening mammo w/cad, [facility]. Tissue Density: Left: The breasts are heterogeneously dense, which may obscure small masses. Findings: Analyzed By CAD. Asymmetric fibroglandular tissue far upper outer left breast is unchanged from prior study. Within the upper outer left breast there is a small nodular density measuring 8 mm 8.6 cm from the nipple. Ultrasound is recommended. Overall Assessment: Incomplete: need additional imaging evaluation, BI-RAD 0 Management: Diagnostic Breast Ultrasound of the left breast. . Results were given to the patient verbally at the time of exam. Patient should continue monthly self-breast exams. A clinical breast exam by your physician is recommended on an annual basis. This exam should not preclude additional follow-up of suspicious palpable abnormalities. Note on Sinai scores and lifetime risk: 1. A Sinai score greater than 3% is considered moderate risk. If this is the case, consider specialist referral to assess eligibility for a risk reducing agent. 2. If overall lifetime risk for the development of breast cancer is 20% or higher, the patient may qualify for future screening with alternating mammogram and breast MRI. [facility], , 01/11/2025 8:56 AM. Electronically signed and approved by: Long Steele M.D. Radiologis
--- NOTE | 2025-01-11 09:34 | USB ---
Reason for Exam: Additional evaluation requested from abnormal screening. Patient History: Menarche at age 15. First Full-Term at age 27. Premenopausal. Hormonal Contraceptives, from age 18 until age 35. Risk Values: Sinai 5 year model risk: 0.7%. NCI Lifetime model risk: 10.9%. Technique: Method: Targeted. Prior Study Comparison: 03/28/2023 Left MG 3D diag mammo w/cad , [facility]. 10/29/2023 Bilateral MG 3D screening mammo w/cad, [facility]. 01/07/2025 Bilateral MG 3D screening mammo w/cad, [facility]. Findings: The upper outer quadrant of the left breast, the axilla of the left breast and the retroareolar of the left breast were scanned. No solid or cystic masses are identified.. Overall Assessment: Probably benign, BI-RAD 3 Management: Diagnostic Mammogram of the left breast in 6 months. A clinical breast exam by your physician is recommended on an annual basis and results should be correlated with mammographic findings. This exam should not preclude additional follow-up of suspicious palpable abnormalities. Results were given to the patient verbally at the time of exam. [facility], , 01/11/2025 9:22 AM. Electronically signed and approved by: Long Steele M.D. Radiologis
== END | disposition home or self-care (01) ==
LOC: RADMAMWWP 08:29
PROVIDERS: ATTEND Family Medicine
DX: R92.8 Other abnormal and inconclusive findings on diagnostic imaging of breast (principal); R92.332 Mammographic heterogeneous density, left breast; Z92.0 Personal history of contraception
CPT/HCPCS: 77061; 77065